=== PATIENT | female | born 1980 | race Hispanic/Latino ===

== ENCOUNTER 2018-09-14 17:16 | Emergency (ER) | payer OTHER ==
[2018-09-14 17:57] LABS: Hemoglobin 8.8 g/dL (12.0-16.0); Mean Corpuscular HGB CONC 30.1 g/dL (32.0-36.0); Mean Corpuscular Hemoglobin 20.6 pg (27.0-31.0); Mean Corpuscular Volume 68.6 fL (78.0-98.0); Mean Platelet Volume 8.3 fL (7.4-10.4); Platelet Count 252 thou/uL (130-400); RBC Distribution Width 17.2 % (11.5-14.5); Red Blood Cell (RBC) Count 4.27 mill/uL (4.20-5.40); White Blood Cell (WBC) Count 10.2 thou/uL (4.8-10.8)
[2018-09-14 18:07] LABS: #Basophils 0.1 thou/uL (0.0-0.2); #Eosinphils 0.1 thou/uL (0.0-0.7); #Lymphocytes 1.9 thou/uL (1.20-3.40); #Monocytes 0.5 thou/uL (0.11-0.59); #Neutrophils 7.5 thou/uL (1.40-6.50); %Basophils 0.8 % (0.0-1.0); %Eosinophils 1.2 % (0.0-10.0); %Lymphocytes 18.9 % (21.0-51.0); %Neutrophils 74.1 % (42.0-75.0); Anion Gap 15 mmol/L (10-20); Anisocytosis SLIGHT = 6-15 cells (100X) (0-5/hpf); BUN (Urea Nitrogen) 8 mg/dL (7.0-18.7); Calc. Creatinine Clearance 0 mL/min (70-130); Calcium 9.6 mg/dL (7.8-10.44); Carbon Dioxide 20 mmol/L (22-29); Chloride 107 mmol/L (98-107); Estimated GFR-MDRD Greater than 90; Glucose 88 mg/dL (70-105); Hypochromia SLIGHT = 6-15 cells (100X) (0-5/hpf); MDiff Complete? YES; Microcytosis SLIGHT = 6-15 cells (100X) (0-5/hpf); Ovalocytes SLIGHT = 2-5 cells (100X) (0-1/hpf); PLT Morphology Comment Appears Adequate; Potassium 3.7 mmol/L (3.5-5.1); Sodium 138 mmol/L (136-145)
--- NOTE | 2018-09-14 18:23 | RAD ---
PORTABLE CHEST: Indication: Shortness of breath. FINDINGS: Lungs are clear. Heart and mediastinum within normal limits. IMPRESSION: No acute process. POS: H
[2018-09-14] MEDS ORDERED: Acetaminophen 325 MG TAB ONE (18:51)
[2018-09-14 18:57] LABS: Bilirubin Negative (Negative); Blood, Urine Trace (Negative); Clarity Clear (Clear); Glucose, Urine (Dipstick) Negative (Negative); Leukocyte Negative (Negative); Nitrite Negative (Negative); Protein, Urine (Dipstick) Negative (Neg-Trace); Urobilinogen 0.2 mg/dL (0.2-1.0)
[2018-09-14 18:59] LABS: Bacteria/HPF Rare-Few HPF (None Seen); RBC/HPF 0-3 HPF (0-3); WBC/HPF None Seen HPF (0-3)
== END 2018-09-14 19:35 | disposition home or self-care (01) ==
LOC: SCSER 17:16
DX: D64.9 Anemia, unspecified (principal)
CPT/HCPCS: 36415; 71045; 80048; 81003; 81015; 85025; 93005

== ENCOUNTER 2018-12-25 09:20 | Inpatient (IN) | payer OTHER ==
[2018-12-25 09:51] VITALS: BMI 41.8
[2018-12-25] MEDS: Lactated Ringer's 1,000 ML IV SCH ×2 (10:00→18:33)
[2018-12-25] MEDS ORDERED: Ondansetron PF 4 MG/2 ML Vial IVP PRN ×3 (10:20→13:49)
[2018-12-25] MEDS ORDERED: Promethazine HCl 25 MG/ML VIAL IM PRN ×2 (10:20→13:49)
[2018-12-25] MEDS ORDERED: CEFAZOLIN 2 GM in Premix Bag 1 BAG IVPB SCH (10:30)
[2018-12-25] MEDS ORDERED: Lactated Ringer's 1,000 ML IV SCH (10:30)
[2018-12-25] MEDS ORDERED: Bicitra 30 ML UDCUP PO SCH (10:30)
[2018-12-25 10:32] LABS: Hemoglobin 13.2 g/dL (12.0-16.0); Mean Corpuscular HGB CONC 33.5 g/dL (32.0-36.0); Mean Corpuscular Hemoglobin 27.4 pg (27.0-31.0); Mean Corpuscular Volume 81.6 fL (78.0-98.0); Mean Platelet Volume 9.1 fL (7.4-10.4); Platelet Count 253 thou/uL (130-400); RBC Distribution Width 17.1 % (11.5-14.5); Red Blood Cell (RBC) Count 4.82 mill/uL (4.20-5.40); White Blood Cell (WBC) Count 8.1 thou/uL (4.8-10.8)
[2018-12-25] MEDS ORDERED: Bicitra 30 ML UDCUP ONE (10:37)
[2018-12-25] MEDS ORDERED: MORPHINE 5 MG/10 ML PF VIAL ONE (10:53)
[2018-12-25] MEDS ORDERED: diphenhydrAMINE 50 MG/ML VIAL ONE ×2 (10:54→13:25)
[2018-12-25] MEDS ORDERED: Promethazine HCl 25 MG/ML VIAL ONE (10:54)
[2018-12-25] MEDS ORDERED: Oxytocin 10 UNITS/ML VIAL ONE (10:54)
[2018-12-25] MEDS ORDERED: Metoclopramide HCl 10 MG/2 ML VIAL ONE ×2 (10:54→13:25)
[2018-12-25] MEDS ORDERED: Ondansetron PF 4 MG/2 ML Vial ONE ×2 (10:54→13:25)
[2018-12-25] MEDS ORDERED: PHENYLEPHRINE-NS 100 MCG/ML 10 ML SYRINGE ONE ×2 (10:55→13:25)
[2018-12-25] MEDS ORDERED: ePHEDrine/0.9% NaCl/PF SYRINGE 50 mg/10 ml ONE (10:55)
[2018-12-25 11:14] LABS: Syphilis Antibody Nonreactive (Nonreactive); Syphilis Antibody Index 0.03 S/CO (<1.00 Non-Reactive)
[2018-12-25 11:15] LABS: HBSAg Index 0.17 S/CO (0-0.99); Hep B Surf Ag Non-Reactive S/CO (NonReactive)
--- NOTE | 2018-12-25 11:46 | PDOC.EVN ---
Event Note - Event Note Event Note: OBGYN Salesperson Furs Note in chart as well: RT CS Assist note I was called to assist with this repeat CS (3) at 37 weeks due to NRFHTs, not in labor. Incidental left paratubal cyst noted and drained by Dr Lawrence. I was present and scrubbed in as list of first job ideas. Rosalinda Counts assisted with skin closure with Dr Lawrence at end of case. Baby was vigorous, apgars pending Placenta to path No complications EBL 500ml (QBL pending) Incision sutured
--- NOTE | 2018-12-25 11:50 | PDOC.OPDEL ---
OB Operative/Delivery Note Delivery Dr/Surgeon: Melinda Assist: MD Cristóbal Pre-Delivery Diagnosis: non-reassuring tracing Procedure/Post Delivery Dx: repeat low transverse CS Weeks gestation: 37 Anesthesia: spinal - Findings A Sex: female - Additional Findings/Plan Placenta delivered: spontaneous findings: low transverse hysterotomy without extension, normal uterus, normal tubes (left paratubal cyst, drained), normal ovaries Estimated blood loss: 500cc Post delivery plan: routine recovery
[2018-12-25] MEDS ORDERED: ePHEDrine 50 MG/ML VIAL ONE (13:25)
[2018-12-25] MEDS ORDERED: Acetaminophen 325 MG TAB PO PRN (13:34)
[2018-12-25] MEDS ORDERED: Lanolin Ointment 7 GM TUBE TOP PRN (13:34)
[2018-12-25] MEDS ORDERED: Bisacodyl 10 MG SUPP PR PRN (13:34)
[2018-12-25] MEDS ORDERED: Simethicone Chewable 80 MG TAB PO PRN (13:34)
[2018-12-25] MEDS ORDERED: Adacel (T-DAP) 0.5 ML SYRINGE IM ONE (13:34)
[2018-12-25] MEDS ORDERED: diphenhydrAMINE 25 MG CAP PO PRN (13:34)
[2018-12-25] MEDS ORDERED: HYDROcodone/Acetaminophen 5/325 mg Tablet PO PRN ×2 (13:34)
[2018-12-25] MEDS ORDERED: Eucerin (Mineral Oil/Petrolatum,White) 30 gm Jar TOP PRN (13:49)
[2018-12-25] MEDS ORDERED: Meperidine HCl/PF 25 MG/ML VIAL SLOW IVP PRN (13:49)
[2018-12-25] MEDS ORDERED: Ketorolac Tromethamine 30 MG/ML VIAL IVP PRN (13:49)
[2018-12-25] MEDS ORDERED: diphenhydrAMINE 50 MG/ML VIAL IVP PRN (13:49)
[2018-12-25] MEDS ORDERED: Naloxone HCl 0.4 mg/ml Vial IV PRN (13:49)
[2018-12-25] MEDS ORDERED: L&D-Morphine 4 MG/ML VIAL SLOW IVP PRN (13:49)
[2018-12-25] MEDS ORDERED: HYDROmorphone 2 MG/ML VIAL SLOW IVP PRN (13:49)
[2018-12-25] MEDS ORDERED: Promethazine HCl 25 MG SUPP PR PRN (13:49)
[2018-12-25] MEDS ORDERED: Ondansetron HCl/PF 4 MG/2 ML Vial IVP PRN (13:49)
[2018-12-25] MEDS ORDERED: Naloxone HCl 0.4 mg/ml Vial IVP PRN ×2 (13:49)
[2018-12-25] MEDS ORDERED: Communication Order-Pharmacy FS SCH (14:00)
[2018-12-25] MEDS ORDERED: Ketorolac Tromethamine 30 MG/ML VIAL IVP SCH (14:00)
[2018-12-25] MEDS: Ferrous Sulfate 325 MG TAB PO SCH (15:13)
--- NOTE | 2018-12-25 18:10 | OP ---
DATE OF PROCEDURE: 12/25/2018 PREOPERATIVE DIAGNOSES: 1. Intrauterine at 37 weeks and 1 day. 2. Non-reassuring heart tones. 3. Prior x2. POSTOPERATIVE DIAGNOSES: 1. Intrauterine at 37 weeks and 1 day. 2. Non-reassuring heart tones. 3. Prior x2. PROCEDURE PERFORMED: Repeat low transverse section via Pfannenstiel skin incision. ANESTHESIA: Spinal. PODOPEDIATRICIAN SURGEON: ESTIMATED BLOOD LOSS: 500 mL. IVF: 2 L of crystalloid. URINE OUTPUT: 100 mL of clear urine. COMPLICATIONS: None. DRAINS: Ortega catheter. PATHOLOGY: Placenta. FINDINGS: Female infant, cephalic presentation, clear amniotic fluid. Apgars and weight are currently pending. Hysterotomy without extension. Normal uterus, ovaries, and tubes bilaterally. DESCRIPTION OF PROCEDURE: The patient was taken to the operating room, where spinal anesthesia was obtained without difficulty. The patient was prepped and draped in a sterile fashion in a distal supine position with a leftward tilt. After ensuring adequacy of anesthesia, a Pfannenstiel skin incision was made and carried down to the underlying subcutaneous tissue with a knife. The fascia was nicked in the midline with a knife and carried laterally with the Green scissors. The superior aspect of the fascia was tented with 2 Kochers and dissected off the rectus with the Green scissors. The inferior aspect of the fascia was tented with 2 Kochers and dissected off the rectus down to the pubic symphysis with Green scissors. The peritoneum was bluntly entered into and manually retracted. The Moris O retractor was placed. The vesicouterine peritoneum was then incised with the Metzenbaum scissors, and the bladder flap was created manually. The lower uterine segment was incised in a transverse fashion and extended with a Orellana maneuver. The 's head was brought to the hysterotomy and delivered with fundal pressure followed by the body. The was vigorous, and delayed cord clamping was performed. The cord was clamped and infant handed to the waiting Federico team. Cord blood was obtained, and the placenta was allowed spontaneously deliver with fundal massage. The uterus was exteriorized, cleared of all clots and debris and the posterior cul-de-sac was left out. The uterus was placed back into the abdomen. The hysterotomy was repaired with #1 Monocryl in a running locked fashion. Hemostasis was noted to be excellent. The pelvis was copiously irrigated and suctioned. Hysterotomy was once again examined and noted to be hemostatic. The Moris O retractor was removed out of the abdomen. The rectus muscles were examined and noted to be hemostatic. The fascia was reapproximated with a 0 PDS x2 sutures with excellent reapproximation. The subcutaneous tissue was irrigated and cauterized any bleeders and reapproximated with a 2-0 plain gut in a running fashion. The skin was closed with 4-0 Monocryl in a subcuticular fashion. Dermabond was applied as well as the pressure dressing. The patient tolerated the procedure well. Sponge and needle counts were correct x2. The patient was taken to recovery room in stable condition. The patient received Ancef 2 g prior to the procedure. Job ID: [id number]
[2018-12-25] MEDS: Docusate Calcium (SURFAK) 240 MG CAP PO SCH (21:06)
[2018-12-26] MEDS ORDERED: HYDROcodone/Acetaminophen 5/325 mg Tablet PO PRN ×2 (02:00)
--- NOTE | 2018-12-26 05:48 | PDOC.PP ---
Post Progress Note Post Day #: 1 Subjective: Patient doing well this AM. Minimal lochia, pain well controlled, tolerating PO. Some difficulty with due to cyst in infant's mouth. workers compensation consultant has been notified. PO intake tolerated: yes Flatus: yes Ambulation: yes Vital Signs (12 hours) Temp Pulse Resp BP BP Pulse Ox 12/26/18 04:30 98.2 F 95 20 92/62 12/26/18 00:13 98.9 F 94 20 97/59 L 12/25/18 20:19 98.4 F 96 20 110/67 97 Weight Weight 113.852 kg - Physical Examination General: NAD Cardiovascular: RRR Respiratory: non-labored breathing Abdominal: + bowel sounds, lochia (minimal), no distention, appropriately TTP Extremities: negative homans (B) Skin: no rash Neurological: no gross focal deficits Psychiatric: A&Ox3, normal affect Result Diagrams: 12/25/18 10:11 Additional Labs: Post Labs Blood Type O POSITIVE 12/25/18 10:11 Hep Bs Antigen Non-Reactive S/CO (NonReactive) 12/25/18 10:11 (1) S/P repeat low transverse Code(s): Z98.891 - HISTORY OF UTERINE SCAR FROM PREVIOUS SURGERY Status: Acute (2) Term delivered Code(s): O80 - ENCOUNTER FOR FULL-TERM UNCOMPLICATED DELIVERY Status: Acute - Assessment/Plan POD #1 s/p rLTCS Ambulating, tolerating PO, Passing flatus VSS ; some difficulties d/t infant having difficulty with latching 2/2 cyst in mouth, coding consultant has been notified Incision clean, dry, intact Continue to monitor Anticipate d/c within next 48 hours
[2018-12-26] MEDS: Docusate Calcium (SURFAK) 240 MG CAP PO SCH ×2 (09:06→21:21)
[2018-12-26] MEDS: Prenatal Vitamin 1 TAB PO SCH (09:06)
[2018-12-26] MEDS: Ferrous Sulfate 325 MG TAB PO SCH ×2 (09:11→16:40)
[2018-12-26 10:55] LABS: Hemoglobin 11.5 g/dL (12.0-16.0); Mean Corpuscular HGB CONC 32.7 g/dL (32.0-36.0); Mean Corpuscular Hemoglobin 27.9 pg (27.0-31.0); Mean Corpuscular Volume 85.2 fL (78.0-98.0); Mean Platelet Volume 9.5 fL (7.4-10.4); Platelet Count 197 thou/uL (130-400); RBC Distribution Width 17.3 % (11.5-14.5); Red Blood Cell (RBC) Count 4.14 mill/uL (4.20-5.40); White Blood Cell (WBC) Count 7.9 thou/uL (4.8-10.8)
[2018-12-26] MEDS: Ibuprofen 800 MG TAB PO SCH ×2 (14:13→21:21)
[2018-12-27] MEDS: Ibuprofen 800 MG TAB PO SCH (05:53)
--- NOTE | 2018-12-27 07:12 | PDOC.PP ---
Post Progress Note Post Day #: 2 Subjective: 38 yo POD 2 s/p rLTCS 2/2 NRFHTs. Pt reports she is doing well, tolerating po, ambulating, passing flatus and has scant lochia. No weakness, dizziness or lightheadedness. PO intake tolerated: yes Flatus: yes Ambulation: yes Vital Signs (12 hours) Temp Pulse Resp BP 12/27/18 04:50 98.4 F 71 24 H 108/57 L 12/26/18 23:30 97.9 F 79 20 107/67 Weight Weight 113.852 kg - Physical Examination General: NAD Cardiovascular: no m/r/g, RRR Respiratory: clear to auscultation bilaterally, non-labored breathing Abdominal: + bowel sounds, lochia, no distention, appropriately TTP Skin: CS incision dry & intact Neurological: no gross focal deficits Psychiatric: normal affect Result Diagrams: 12/26/18 06:14 Additional Labs: Post Labs Blood Type O POSITIVE 12/25/18 10:11 Hep Bs Antigen Non-Reactive S/CO (NonReactive) 12/25/18 10:11 (1) S/P repeat low transverse Code(s): Z98.891 - HISTORY OF UTERINE SCAR FROM PREVIOUS SURGERY Status: Acute - Assessment/Plan POD #2 s/p rLTCS Ambulating, tolerating PO, Passing flatus VSS Incision clean, dry, intact Pt given option of observation another day vs home; feels she is ready to go home Incision CDI and VSS will plan for DC this afternoon Dispo: stable, POD 2 s/p rLTCS plan for DC to home today.
[2018-12-27] MEDS: Ferrous Sulfate 325 MG TAB PO SCH (07:40)
[2018-12-27] MEDS: Docusate Calcium (SURFAK) 240 MG CAP PO SCH (07:41)
[2018-12-27] MEDS: Prenatal Vitamin 1 TAB PO SCH (07:41)
[2018-12-27 09:02] VITALS: BP 113/72; TEMP 97.4
== END 2018-12-27 12:55 | disposition home or self-care (01) | DRG 788 ==
LOC: L&D/OP 09:20 → L&D 11:33 → 3SW 14:08
PROVIDERS: ADMIT Student in an Organized Health Care Education/Training Program; ATTEND Student in an Organized Health Care Education/Training Program
PROC: 10D00Z1 Extraction of Products of Conception, Low, Open Approach (ICD-10-PCS; principal; 2018-12-25)
DX: O76 Abnormality in fetal heart rate and rhythm complicating labor and delivery (principal); O34.211 Maternal care for low transverse scar from previous cesarean delivery; N83.8 Other noninflammatory disorders of ovary, fallopian tube and broad ligament; O99.89 Other specified diseases and conditions complicating pregnancy, childbirth and the puerperium; Z3A.37 37 weeks gestation of pregnancy; Z37.0 Single live birth
CPT/HCPCS: 36415; 51702; 85027; 86780; 86850; 86900; 86901; 87340; 99285; J1200; J1885; J2270; J2405; J2550; J2590; J2765; J3490

== ENCOUNTER 2020-09-16 18:34 | Emergency (ER) | payer OTHER ==
[2020-09-16 19:19] LABS: Bilirubin Negative (Negative); Blood, Urine Negative (Negative); Clarity Clear (Clear); Glucose, Urine (Dipstick) Normal (Negative); Ketone, Urine Negative (Negative); Leukocyte Negative Leu/uL (Negative); Nitrite Negative (Negative); Protein, Urine (Dipstick) Negative (Neg-Trace); Specific Gravity, Urine 1.028 (1.002-1.036)
[2020-09-16 19:21] LABS: Pregnancy Test - Urine (BHCG) Negative (Negative); Pregu Control Background? CLEAR/WHITE (CLR/WHITE); Pregu Control Bar Appear? YES (CONTROL BAR); Specific Gravity 1.028 (1.002-1.036)
[2020-09-16 19:54] LABS: ALT (SGPT) 13 U/L (8-55); AST (SGOT) 13 U/L (5-34); Albumin 4.2 g/dL (3.5-5.0); Alkaline Phosphatase 78 U/L (40-110); Anion Gap 14 mmol/L (10-20); BUN (Urea Nitrogen) 13 mg/dL (7.0-18.7); Bilirubin, Total 0.3 mg/dL (0.2-1.2); Calc. Creatinine Clearance 0 mL/min (70-130); Calcium 8.6 mg/dL (7.8-10.44); Carbon Dioxide 23 mmol/L (22-29); Chloride 106 mmol/L (98-107); Estimated GFR-MDRD Greater than 90; Globulin 3.3 g/dL (2.4-3.5); Glucose 100 mg/dL (70-105); Lipase 40 U/L (8-78); Potassium 3.4 mmol/L (3.5-5.1); Protein, Total 7.5 g/dL (6.0-8.3); Sodium 140 mmol/L (136-145)
[2020-09-16 19:56] LABS: #Basophils 0.1 thou/uL (0.0-0.2); #Eosinphils 0.2 thou/uL (0.0-0.7); #Lymphocytes 2.1 thou/uL (1.20-3.40); #Monocytes 0.5 thou/uL (0.11-0.59); #Neutrophils 5.5 thou/uL (1.40-6.50); %Eosinophils 2.4 % (0.0-10.0); %Monocytes 6.4 % (0.0-10.0); %Neutrophils 65.2 % (42.0-75.0); Anisocytosis MODERATE=16-30 cells (100X) (0-5/hpf); Hemoglobin 8.3 g/dL (12.0-16.0); MDiff Complete? YES; Mean Corpuscular HGB CONC 31.1 g/dL (32.0-36.0); Mean Corpuscular Hemoglobin 19.1 pg (27.0-31.0); Mean Corpuscular Volume 61.5 fL (78.0-98.0); Mean Platelet Volume 6.9 fL (7.4-10.4); Microcytosis MODERATE=15-30 cells (100X) (0-5/hpf); Platelet Count 321 thou/uL (130-400); Platelet Morphology Comment Appears Adequate; RBC Distribution Width 18.2 % (11.5-14.5); Red Blood Cell (RBC) Count 4.37 mill/uL (4.20-5.40); Reflex for Review?? YES; White Blood Cell (WBC) Count 8.4 thou/uL (4.8-10.8)
--- NOTE | 2020-09-16 20:57 | CT ---
ABDOMEN AND PELVIC CT SCAN WITHOUT IV CONTRAST: 09/16/20 HISTORY: Left flank pain for two weeks radiating to the left lower quadrant. FINDINGS: Lung bases are clear. The liver appears unremarkable. Status post cholecystectomy. No common duct or intrahepatic ductal dilatation. Pancreas appears unremarkable. Borderline sized spleen. Adrenal gland s are unremarkable. No evidence of renal calculus or acute obstruction. Normal appearing appendix. IUD within the uterus. 2.1 x 2.8 cm diameter incidental left ovarian follicle cyst. No adenopathy, a bscess or abnormal fluid collection within the abdomen or pelvis. IMPRESSION: Unremarkable abdomen and pelvic CT scan. No significant acute process. No renal calculus or obstru ction. IUD in place. POS: RRE
[2020-09-16] MEDS ORDERED: Fentanyl 100 MCG/2 ML VIAL ONE (21:21)
[2020-09-16] MEDS ORDERED: Ondansetron PF 4 MG/2 ML Vial ONE (21:21)
[2020-09-16] MEDS ORDERED: Ketorolac Tromethamine 30 MG/ML VIAL ONE (22:09)
[2020-09-16] MEDS ORDERED: Magnesium Citrate 300 ML BOT ONE (23:26)
== END 2020-09-16 23:30 | disposition home or self-care (01) ==
LOC: ERS 18:34
DX: R10.32 Left lower quadrant pain (principal)
CPT/HCPCS: 36415; 74176; 80053; 81003; 81025; 83690; 85025; 85060; 96374; 96375; J1885; J2405; J3010